=== PATIENT | male | born 1955 | race Caucasian/White ===

== ENCOUNTER → 2017-08-29 | Outpatient (CLI) | payer OTHER ==
[2017-08-29 11:45] LABS: HEMATOCRIT 44.6 % (42.0-52.0); HEMOGLOBIN 15.4 gm/dL (14.0-18.0); MCH 33.2 pg (26.0-34.0); MCHC 34.5 g/dL (28.0-37.0); MCV 96.4 fL (80.0-100.0); MPV 7.2 fl. (7.2-11.1); NUCLEATED RBCS 0 /100WBC; PLATELET COUNT* 220 thou/uL (150-400); RBC 4.63 mil/uL (4.50-6.00); RDW-CV 13.6 % (10.5-14.5); WBC 7.4 thou/uL (4.0-11.0)
[2017-08-29 12:06] LABS: ALBUMIN 3.7 g/dL (3.4-5.0); CALCIUM 9.5 mg/dL (8.5-10.1); CREATININE 1.4 mg/dL (0.6-1.3); POTASSIUM 3.9 mmol/L (3.5-5.1); TOTAL BILIRUBIN 0.5 mg/dL (<0.1-1.0); TOTAL PROTEIN 6.8 g/dL (6.4-8.2)
[2017-08-29 12:10] LABS: ABSOLUTE LYMPHOCYTES 1.5 thou/uL (0.8-5.3); ABSOLUTE MONOCYTES 0.8 thou/uL (0.0-1.2); ABSOLUTE NEUTROPHILS 5.1 thou/uL (1.6-8.1)
[2017-08-29 12:11] LABS: ANISOCYTOSIS 1+; PLATELET ESTIMATE ADEQUATE; POIKILOCYTOSIS 1+
[2017-08-29 16:28] LABS: % SATURATION 39 % (20-39); IRON 109 ug/dL (50-175)
== END ==
LOC: M.LAB 10:47
PROVIDERS: Internal Medicine
DX: E83.119 Hemochromatosis, unspecified (principal)

== ENCOUNTER → 2017-08-29 | Outpatient (CLI) | payer OTHER ==
--- NOTE | 2017-09-05 11:41 | CON ---
[address] [address] CONSULTATION Name: ELMER GAMINO Room: [facility]#: [id number] Admission: 08/29/17 Attend Phys: Ezio Estrella MD Discharge: Date of : 51 Report #: [id number] THIS REPORT FOR: //name// CC: Miller Estrella DATE OF SERVICE: 08/29/2017 REASON FOR CONSULTATION: Hemochromatosis. SUBJECTIVE: A 61-year-old male who was diagnosed with hereditary hemochromatosis years ago, was evaluated today for establishing a treatment management and treatment for hemochromatosis. 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 The patient reported that he has been getting phlebotomy around 10 times a year. He would monitor that based on the symptoms of arthralgia that developed during the month. The patient denies any liver disease or diabetes or skin pigmentation. However, he has been having significant joint pain and joint swelling, he has been evaluated for connective tissue disease. VIRGIL was positive. The patient denies any previous history of hepatitis or alcoholism. REVIEW OF SYSTEMS: All systems reviewed. It was negative except as above. PAST MEDICAL HISTORY: Hereditary hemochromatosis, connective tissue disease. PAST SURGICAL HISTORY: None. Colonoscopy in 2018. FAMILY HISTORY: Positive for hemochromatosis multiple family members of first degree. No family history of malignancy. SOCIAL HISTORY: No smoking, no abuse, no drug abuse. ALLERGIES: CODEINE AND SULFA CAUSES HIVES. MEDICATIONS: Plaquenil 400 mg and prednisone Dosepak. PHYSICAL EXAMINATION: VITAL SIGNS: Temperature is 97.3, pulse 80, respirations 18, saturation is 97%, blood pressure is 128/82. GENERAL: The patient was sitting in a chair. He was not in acute distress. HEENT: Clear to auscultations bilaterally. HEART: Regular rate and rhythm. S1, S2 [place] [id number] CONSULTATION Name: ELMER GAMINO Room: [facility]#: [id number] Admission: 08/29/17 Attend Phys: Ezio Estrella MD Discharge: Date of : 51 Report #: [id number] ABDOMEN: Soft, nontender, nondistended. Bowel sounds positive. EXTREMITIES: The patient had a significant degree of joint swelling at his hands. LABORATORY DATA: A homozygous C282Y mutation for hemochromatosis. ASSESSMENT AND PLAN: A 61-year-old male who had a history of hemochromatosis, has been on phlebotomy around 10 times a year through a blood thinner. He was tested positive for C282Y mutation. RECOMMENDATIONS: 1. I would like to obtain iron profile and ferritin. We will start the patient on phlebotomy. Target will be to titrate his ferritin around 50 ng/mL. I discussed with the patient to minimize the use of Tylenol, alcohol. He was tested for hepatitis. Also, avoiding raw seafood. A phlebotomy schedule will be based on his ferritin level. All questions have been answered. Again,Thank you for this consultation. We will follow up in 6 weeks. <ELECTRONICALLY SIGNED> By: Ezio Estrella MD 09/05/17 1141 1059 1935Monaina Estrella MD /nt
== END ==
LOC: M.RTH 03:24
DX: E83.119 Hemochromatosis, unspecified (principal)

== ENCOUNTER → 2017-10-10 | Outpatient (CLI) | payer OTHER ==
[2017-10-10 10:39] LABS: ABSOLUTE LYMPHOCYTES 0.7 thou/uL (0.8-5.3); ABSOLUTE MONOCYTES 0.5 thou/uL (0.0-1.2); ABSOLUTE NEUTROPHILS 2.5 thou/uL (1.6-8.1); BASOPHILS 0.9 %; EOSINOPHILS 1.1 %; HEMOGLOBIN 15.6 gm/dL (14.0-18.0); LYMPHOCYTES 19.3 %; MCH 33.4 pg (26.0-34.0); MCHC 34.7 g/dL (28.0-37.0); MCV 96.3 fL (80.0-100.0); MONOCYTES 14.2 %; MPV 6.9 fl. (7.2-11.1); NUCLEATED RBCS 0 /100WBC; PLATELET COUNT* 241 thou/uL (150-400); POLYS 64.5 %; RBC 4.67 mil/uL (4.50-6.00); RDW-CV 13.5 % (10.5-14.5); WBC 3.8 thou/uL (4.0-11.0)
[2017-10-10 11:14] LABS: % SATURATION 73 % (20-39); IRON 214 ug/dL (50-175)
--- NOTE | 2017-10-24 10:42 | HEMONC ---
[address] [address] HEMATOLOGY ONCOLOGY NOTE Name: ELMER GAMINO Room: [facility]#: [id number] Admission: 10/10/17 Attend Phys: Ezio Estrella MD Discharge: Date of : 51 Report #: [id number] THIS REPORT FOR: //name// CC: Miller Estrella DATE OF SERVICE: 10/10/2017 PRIMARY CARE PHYSICIAN: Miller Adames M.D. DIAGNOSIS: Hemochromatosis. SUBJECTIVE: A 62-year-old male who presented today for a 6-week followup after he had his first evaluation. His iron profile came back with ferritin 62. His saturation was 39 and TIBC 281. The patient reported he was still having joint pain and muscle aches. However, he was told it was more related to connective tissue disease and he is currently on Plaquenil. Last phlebotomy was done 4 months ago. REVIEW OF SYSTEMS: All systems were reviewed and were negative, except the above. PAST MEDICAL HISTORY: Unchanged from previous visits. SOCIAL HISTORY: Unchanged from previous visits. FAMILY HISTORY: Unchanged from previous visits. PHYSICAL EXAMINATION: VITAL SIGNS: Today, the blood pressure is 118/82, pulse is 66, respirations 18, saturation is 97% on room air and temperature is 97.0. GENERAL: The patient was sitting in chair, was not in acute distress. LUNGS: Clear to auscultation bilaterally. HEART: Regular rate and rhythm. S1, S2 within normal limits. ABDOMEN: Soft, nontender and nondistended. Bowel sounds positive. ASSESSMENT AND PLAN: A 62-year-old male who was diagnosed with homozygous C282Y mutation for hemochromatosis. His iron profile showed that his ferritin was between 50-100 ng/mL. At this point, no medical phlebotomy is required. I would like to check his iron and ferritin levels today and also in 3 months to evaluate how frequent phlebotomy will be required. <ELECTRONICALLY SIGNED> By: Ezio Estrella MD 10/24/17 1042 1135 [id number] Estrella MD /nt
== END ==
LOC: M.RTH 06:00 → M.LAB 06:00 → EDSTATUS 09:30 → M.RTH 09:30
PROVIDERS: Internal Medicine
DX: E83.119 Hemochromatosis, unspecified (principal)

== ENCOUNTER → 2018-01-08 | Outpatient (CLI) | payer OTHER ==
[2018-01-08 15:10] LABS: ABSOLUTE LYMPHOCYTES 0.8 thou/uL (0.8-5.3); ABSOLUTE MONOCYTES 0.6 thou/uL (0.0-1.2); ABSOLUTE NEUTROPHILS 2.7 thou/uL (1.6-8.1); BASOPHILS 1.1 %; EOSINOPHILS 1.1 %; HEMATOCRIT 38.1 % (42.0-52.0); HEMOGLOBIN 13.1 gm/dL (14.0-18.0); LYMPHOCYTES 19.3 %; MCH 33.5 pg (26.0-34.0); MCHC 34.3 g/dL (28.0-37.0); MCV 97.6 fL (80.0-100.0); MONOCYTES 14.1 %; MPV 6.7 fl. (7.2-11.1); NUCLEATED RBCS 0 /100WBC; PLATELET COUNT* 242 thou/uL (150-400); POLYS 64.4 %; RDW-CV 12.5 % (10.5-14.5); WBC 4.2 thou/uL (4.0-11.0)
[2018-01-08 15:47] LABS: % SATURATION 16 % (20-39); IRON 46 ug/dL (50-175)
== END ==
LOC: M.LAB 14:55
PROVIDERS: Internal Medicine
DX: E83.119 Hemochromatosis, unspecified (principal)

== ENCOUNTER → 2018-01-09 | Outpatient (CLI) | payer OTHER ==
--- NOTE | 2018-01-09 23:22 | HEMONC ---
[address] [address] HEMATOLOGY ONCOLOGY NOTE Name: ELMER GAMINO Room: [facility]#: [id number] Admission: 01/09/18 Attend Phys: Ezio Estrella MD Discharge: Date of : 51 Report #: [id number] THIS REPORT FOR: //name// CC: Miller Estrella DATE OF SERVICE: 01/09/2018 PRIMARY CARE PHYSICIAN: Miller Adames M.D. DIAGNOSIS: Hemochromatosis. SUBJECTIVE: The patient presented today as a 3-month followup. Since his last visit, the patient had 2 blood donations. I reviewed his blood work, which was done yesterday. His hemoglobin dropped to 13.1 from 15.6. In addition to that, his ferritin dropped further from 45 to 17. The patient reported that he felt better with blood donation for a few days. However, I advised him to hold on blood donation since his ferritin keeps dropping and he became anemic. The patient reported that he has a followup appointment with Rheumatology in March. REVIEW OF SYSTEMS: All systems were reviewed. It was negative, except the above. PAST MEDICAL HISTORY: Unchanged from previous visits. SOCIAL HISTORY: Unchanged from previous visits. FAMILY HISTORY: Unchanged from previous visits. PHYSICAL EXAMINATION: VITAL SIGNS: Today, blood pressure is 126/81, pulse 66, respirations 16, temperature is 97.6 and saturations 97% on room air. GENERAL: The patient was sitting in a chair, was not in acute distress. LUNGS: Clear to auscultations bilaterally. HEART: Regular rate and rhythm. S1, S2 within normal limits. ABDOMEN: Soft, nontender and nondistended. Bowel sounds positive. EXTREMITIES: No edema, no cyanosis, no clubbing. ASSESSMENT AND PLAN: A 62-year-old male diagnosed with hemochromatosis homozygous c282y mutation. At this point, his ferritin level keeps dropping. I advised the patient to hold [place] [address] HEMATOLOGY ONCOLOGY NOTE Name: ELMER GAMINO Room: [facility]#: [id number] Admission: 01/09/18 Attend Phys: Ezio Estrella MD Discharge: Date of : 51 Report #: [id number] became a little bit anemic with hemoglobin of 13.1, I would like to follow up in 4 months with labs prior to that. All questions have been answered. <ELECTRONICALLY SIGNED> By: Ezio Estrella MD 01/09/18 2322 0959 [id number] Estrella MD /nt
== END ==
LOC: M.RTH 04:38
DX: E83.119 Hemochromatosis, unspecified (principal)

== ENCOUNTER → 2018-05-04 | Outpatient (CLI) | payer OTHER ==
[2018-05-04 12:02] LABS: ABSOLUTE BASOPHILS 0.1 thou/uL (0.0-0.2); ABSOLUTE EOSINOPHILS 0.1 thou/uL (0.0-0.7); ABSOLUTE LYMPHOCYTES 0.6 thou/uL (0.8-5.3); ABSOLUTE MONOCYTES 0.5 thou/uL (0.0-1.2); ABSOLUTE NEUTROPHILS 3.9 thou/uL (1.6-8.1); EOSINOPHILS 1.1 %; HEMATOCRIT 43.6 % (42.0-52.0); HEMOGLOBIN 15.1 gm/dL (14.0-18.0); LYMPHOCYTES 11.7 %; MCH 32.9 pg (26.0-34.0); MCHC 34.6 g/dL (28.0-37.0); MCV 95.2 fL (80.0-100.0); MONOCYTES 10.7 %; MPV 6.9 fl. (7.2-11.1); NUCLEATED RBCS 0 /100WBC; PLATELET COUNT* 209 thou/uL (150-400); POLYS 75.5 %; RBC 4.58 mil/uL (4.50-6.00); RDW-CV 13.8 % (10.5-14.5); WBC 5.1 thou/uL (4.0-11.0)
[2018-05-04 12:41] LABS: % SATURATION 56 % (20-39); IRON 163 ug/dL (50-175)
== END ==
LOC: M.LAB 11:30
PROVIDERS: Internal Medicine
DX: E83.119 Hemochromatosis, unspecified (principal)

== ENCOUNTER → 2018-05-08 | Outpatient (CLI) | payer OTHER ==
--- NOTE | 2018-05-09 08:40 | HEMONC ---
[address] [address] HEMATOLOGY ONCOLOGY NOTE Name: ELMER GAMINO Room: [facility]#: [id number] Admission: 05/08/18 Attend Phys: Ezio Estrella MD Discharge: Date of : 51 Report #: [id number] THIS REPORT FOR: //name// CC: Miller Estrella DATE OF SERVICE: 05/08/2018 REASON FOR CONSULTATION: Hemochromatosis. SUBJECTIVE: The patient presented today for 4 months followup. Since his last visit, he has been doing fairly well. He denies any acute complaints. He is following up with Rheumatology at [facility]. The patient did not have any blood donation since his last visit. I repeated labs on 05/04/2018, which showed that his hemoglobin got corrected at 15.1. His ferritin remains controlled at the level of 41 ng/mL. The patient denies any fatigue, skin discoloration or any symptoms suggestive of diabetes, like polyuria or polydipsia. REVIEW OF SYSTEMS: All systems were reviewed. It was negative, except the above. PAST MEDICAL HISTORY: Unchanged from previous visit. SOCIAL HISTORY: Unchanged from previous visit. FAMILY HISTORY: Unchanged from previous visit. MEDICATIONS: Medication list has been reviewed. PHYSICAL EXAMINATION: VITAL SIGNS: Today, blood pressure is 126/81, pulse is 66, respirations 16, temperature is 97.6 and SpO2 is 97% on room air. GENERAL: The patient was sitting in chair, was not in acute distress. LUNGS: Clear to auscultations bilaterally. HEART: Regular rate and rhythm. S1, S2 within normal limits. ABDOMEN: Soft, nontender and nondistended. Bowel sounds positive. EXTREMITIES: No edema, no cyanosis and no clubbing. ASSESSMENT AND PLAN: A 62-year-old male diagnosed with hemochromatosis homozygous C282Y mutation. At this point, the patient does not have any active symptoms. His ferritin is 41 ng/mL. At this point, [place] [address] HEMATOLOGY ONCOLOGY NOTE Name: ELMER GAMINO Room: [facility]#: [id number] Admission: 05/08/18 Attend Phys: Ezio Estrella MD Discharge: Date of : 51 Report #: [id number] like to continue to monitor the patient. No need for phlebotomy at this point. Labs in 3 months and 6 months, followup in 6 months. <ELECTRONICALLY SIGNED> By: Ezio Estrella MD 05/09/18 0840 1011 [id number] Estrella MD /nt
== END ==
LOC: M.RTH 03:46
DX: E83.118 Other hemochromatosis (principal)

== ENCOUNTER → 2018-10-02 | Outpatient (CLI) | payer MEDICARE, OTHER ==
[2018-10-02 10:45] LABS: ABSOLUTE EOSINOPHILS 0.1 thou/uL (0.0-0.7); ABSOLUTE LYMPHOCYTES 0.8 thou/uL (0.8-5.3); ABSOLUTE MONOCYTES 0.5 thou/uL (0.0-1.2); ABSOLUTE NEUTROPHILS 2.7 thou/uL (1.6-8.1); BASOPHILS 0.5 %; EOSINOPHILS 1.7 %; HEMATOCRIT 44.5 % (42.0-52.0); HEMOGLOBIN 15.4 gm/dL (14.0-18.0); LYMPHOCYTES 20.9 %; MCH 33.8 pg (26.0-34.0); MCHC 34.7 g/dL (28.0-37.0); MCV 97.7 fL (80.0-100.0); MONOCYTES 11.7 %; MPV 6.9 fl. (7.2-11.1); NUCLEATED RBCS 0 /100WBC; PLATELET COUNT* 213 thou/uL (150-400); POLYS 65.2 %; RBC 4.55 mil/uL (4.50-6.00); RDW-CV 12.6 % (10.5-14.5); WBC 4.1 thou/uL (4.0-11.0)
[2018-10-02 11:39] LABS: % SATURATION 68 % (20-39); IRON 171 ug/dL (50-175)
== END ==
LOC: M.LAB 10:20
PROVIDERS: Internal Medicine
DX: E83.119 Hemochromatosis, unspecified (principal)

== ENCOUNTER → 2018-10-09 | Outpatient (CLI) | payer MEDICARE, OTHER ==
--- NOTE | 2018-10-10 22:02 | HEMONC ---
[facility] [address] [place] [address] HEMATOLOGY ONCOLOGY NOTE Name: ELMER GAMINO MILTON Room: [facility]#: [id number] Admission: 10/09/18 Attend Phys: Ezio Estrella MD Discharge: Date of : 51 Report #: [id number] THIS REPORT FOR: //name// CC: Miller Estrella DATE OF SERVICE: 10/09/2018 CLINIC NOTE PRIMARY CARE PHYSICIAN: Miller Adames M.D. DIAGNOSIS: Hemochromatosis. SUBJECTIVE: The patient presented today as a 3-month's followup for the management of his hemochromatosis. Since his last visit, he was evaluated at the Rheumatology Department at [facility]. He has been taken off of lot of his medications per the patient and since then, the patient continues to feel better. He denies fatigue or lightheadedness. No arthralgia or myalgia. I reviewed his most recent labs including his iron studies, which showed that his ferritin is 71; all the way back to 08/2017, it was 62. The last phlebotomy was around 10 months ago. REVIEW OF SYSTEMS: All systems were reviewed. It was negative except the above. PAST MEDICAL, SOCIAL, AND FAMILY HISTORY: Unchanged from previous visit. MEDICATIONS: List has been reviewed. PHYSICAL EXAMINATION: VITAL SIGNS: Have been reviewed. GENERAL: By physical examination, the patient was sitting in chair, was not in acute distress. LUNGS: Clear to auscultations bilaterally. HEART: Regular rate and rhythm. S1, S2 within normal limits. ABDOMEN: Soft, nontender, nondistended, bowel sounds positive. LABORATORY DATA: On 10/02/2018, WBC 4.1, hemoglobin 15.4, platelets 213. Creatinine is 1.4. TIBC 253, iron saturation 68%, ferritin 71. ASSESSMENT AND PLAN: A 63-year-old male diagnosed with hemochromatosis C282Y mutation homozygous. At this point, ferritin has been stable. Most recent one 71 ng/mL. Plan is to continue [place] [address] HEMATOLOGY ONCOLOGY NOTE Name: ELMER GAMINO Room: [facility]#: [id number] Admission: 10/09/18 Attend Phys: Ezio Estrella MD Discharge: Date of : 51 Report #: [id number] We will check labs in 6 months. The patient was advised to call if he developed any new symptoms. <ELECTRONICALLY SIGNED> By: Ezio Estrella MD 10/10/18 2202 1012 2148Ezio Estrella MD /nt
== END ==
LOC: M.RTH 05:15
DX: E83.119 Hemochromatosis, unspecified (principal)

== ENCOUNTER → 2019-03-26 | Outpatient (CLI) | payer MEDICARE, OTHER ==
[2019-03-26 11:20] LABS: ABSOLUTE EOSINOPHILS 0.1 thou/uL (0.0-0.7); ABSOLUTE LYMPHOCYTES 0.9 thou/uL (0.8-5.3); ABSOLUTE MONOCYTES 0.5 thou/uL (0.0-1.2); ABSOLUTE NEUTROPHILS 2.3 thou/uL (1.6-8.1); BASOPHILS 0.9 %; EOSINOPHILS 2.3 %; HEMATOCRIT 43.9 % (42.0-52.0); HEMOGLOBIN 15.3 gm/dL (14.0-18.0); MCH 34.6 pg (26.0-34.0); MCHC 34.9 g/dL (28.0-37.0); MONOCYTES 12.1 %; MPV 6.6 fl. (7.2-11.1); NUCLEATED RBCS 0 /100WBC; PLATELET COUNT* 218 thou/uL (150-400); POLYS 60.7 %; RBC 4.43 mil/uL (4.50-6.00); WBC 3.8 thou/uL (4.0-11.0)
[2019-03-26 11:47] LABS: % SATURATION 86 % (20-39); IRON 218 ug/dL (50-175)
== END ==
LOC: M.LAB 10:52
PROVIDERS: Internal Medicine
DX: E83.119 Hemochromatosis, unspecified (principal)

== ENCOUNTER → 2019-04-09 | Outpatient (CLI) | payer MEDICARE, OTHER ==
--- NOTE | 2019-04-15 08:45 | HEMONC ---
[address] [address] HEMATOLOGY ONCOLOGY NOTE Name: ELMER GAMINO Room: [facility]#: [id number] Admission: 04/09/19 Attend Phys: Ezio Estrella MD Discharge: Date of : 51 Report #: [id number] THIS REPORT FOR: //name// CC: Miller Estrella DATE OF SERVICE: 04/09/2019 DIAGNOSIS: Hemochromatosis. SUBJECTIVE: The patient presented today as 6 months followup for the management of his hemochromatosis. He has not donated blood for the last year and half. He denies any acute complaints. No nausea or vomiting. He denies any fatigue. No polyuria or polydipsia to suggest diabetes mellitus symptoms. He denies any joint pain or joint swelling. Today, I reviewed his trends of ferritin, which showed increase in the last year and half from 12/2018, it was 79 ng/mL. Most recently in September it was 71 and on 03/26/2019, it was 166. I advised the patient to do one phlebotomy through a blood donation. REVIEW OF SYSTEMS: All systems were reviewed. It was negative except the above. PAST MEDICAL, SOCIAL, AND FAMILY HISTORY: Unchanged from last visit. MEDICATIONS: List has been reviewed. PHYSICAL EXAMINATION: VITAL SIGNS: Blood pressure is 126/79, pulse 66, respirations 18, temperature is 97.4, saturations 97% on room air. GENERAL: The patient was sitting in chair, was not in acute distress. LUNGS: Clear to auscultations bilaterally. HEART: Regular rate and rhythm. S1, S2 within normal limits. ABDOMEN: Soft, nontender, nondistended, bowel sounds positive. LABORATORY DATA: As mentioned above. ASSESSMENT AND PLAN: A 63-year-old male who has been diagnosed with hemochromatosis, C282Y mutation homozygous. For the last 6 months, his ferritin has increased from 71-166 ng/mL. Recommend to obtain one phlebotomy through a blood donation. Repeat labs including CBC, iron studies in 3 months and [address] [place] [address] HEMATOLOGY ONCOLOGY NOTE Name: ELMER GAMINO Room: [facility]#: [id number] Admission: 04/09/19 Attend Phys: Ezio Estrella MD Discharge: Date of : 51 Report #: [id number] months. I am expecting that the patient will need annual phlebotomy. Followup in 6 months. <ELECTRONICALLY SIGNED> By: Ezio Estrella MD 04/15/19 0845 0922 0943Ezio Estrella MD /nt
== END ==
LOC: M.RTH 05:11
DX: E83.119 Hemochromatosis, unspecified (principal)